=== PATIENT | female | born 1990 | race African-American/Black ===

== ENCOUNTER 2016-11-21 22:02 | Emergency (ER) | payer OTHER ==
[~2016-11-21] VITALS: Ht 170.2 cm; Wt 63.5 kg
[~2016-11-21 22:02] MED LIST: ALBU8.5H6 INH; HYDR-971 PO; TRAM50TA PO
[2016-11-21] MEDS ORDERED: diphenhydrAMINE 50 MG/ML VIAL IVP ONE (22:30)
[2016-11-21] MEDS ORDERED: PROCHLORPERAZINE 10 MG/2 ML VIAL. IV ONE (22:30)
[2016-11-21] MEDS ORDERED: DEXAMETHASONE SOD PHOS 20 MG/5 ML VIAL. IV ONE (22:30)
[2016-11-21] MEDS ORDERED: KETOROLAC 15 MG/ML VIAL. IV ONE (22:30)
--- NOTE | 2016-11-21 22:45 | PHYS DOC ---
Past Medical History Past Medical History: Asthma Past Surgical History: Other Additional Past [place] Histo[place] [facility] [place] Use: Occasionally Drug Use: None Adult General Chief Complaint Chief Complaint: HEADACHE HPI HPI Patient is a 26 year old female who presents with gradual onset left sided headache that is achy and has associated tingling and pain to left shoulder, neck and upper extremity. States left upper extremity feels slightly better if held in flexion at elbow. Symptoms are worse when she turns her head to the right or bends her neck to the right. She was working at a [employer] when symptoms began. Denies recent trauma. Denies vision changes, dizziness, chest pain, dyspnea, cough, f/c, n/v, abdominal pain, back pain, rash. Review of Systems Review of Systems Constitutional: Denies fever or chills [] Eyes: Denies change in visual acuity, redness, or eye pain [] HENT: Denies nasal congestion or sore throat [] Respiratory: Denies cough or shortness of breath [] Cardiovascular: No additional information not addressed in HPI [] GI: Denies abdominal pain, nausea, vomiting, bloody stools or diarrhea [] : Denies dysuria or hematuria [] Musculoskeletal: Denies back pain or joint pain [] Integument: Denies rash or skin lesions [] Neurologic: Denies focal weakness [] Endocrine: Denies polyuria or polydipsia [] Current Medications Current Medications Current Medications Medications (Trade) Dose Ordered Sig/Micheal Start Time Stop Time Status Last Admin Dose Admin Dexamethasone Sodium Phosphate (Decadron) 10 mg 1X ONCE 11/21/16 22:30 11/21/16 22:31 DC 11/21/16 22:41 10 MG Diphenhydramine HCl (Benadryl) 25 mg 1X ONCE 11/21/16 22:30 11/21/16 22:31 DC 11/21/16 22:42 25 MG Ketorolac Tromethamine (Toradol) 15 mg 1X ONCE 11/21/16 22:30 11/21/16 22:31 DC 11/21/16 22:42 15 MG Prochlorperazine Edisylate (Compazine) 10 mg 1X ONCE 11/21/16 22:30 11/21/16 22:31 DC 11/21/16 22:41 10 MG Allergies Allergies Allergies Coded Allergies Type Severity Reaction Last Updated Verified radium-223 dichloride Allergy Intermediate RASH 03/03/14 Yes Physical Exam Physical Exam Constitutional: Well developed, well nourished, no acute distress, non-toxic appearance. [] HENT: Normocephalic, atraumatic, bilateral external ears normal, oropharynx moist, nose normal. [] Eyes: PERRLA, EOMI. [] Neck: Normal range of motion, supple. [] Cardiovascular:Heart rate regular rhythm [] Lungs & Thorax: Bilateral breath sounds clear to auscultation [] Abdomen: Bowel sounds normal, soft, no tenderness. [] Skin: Warm, dry, no erythema, no rash. [] Back: No spinal tenderness, normal ROM; Has some left trapezius and thoracic paraspinal tenderness. [] Extremities: No tenderness, ROM intact, no edema, 2+ radial pulses bilaterally. [] Neurologic: Alert and oriented X 3, normal motor function, normal sensory function, no focal deficits noted. [] Psychologic: Affect normal, judgement normal, mood normal. [] Current Patient Data Vital Signs Vital Signs Date Time Temp Pulse Resp B/P (MAP) Pulse Ox O2 Delivery O2 Flow Rate FiO2 11/21/16 22:29 98.3 119 16 126/73 (90) 98 Room Air 98.3 Lab Values Laboratory Tests Test 11/21/16 21:18 POC Urine HCG, Qualitative Hcg negative (Negative) Course & Med Decision Making Course & Med Decision Making Her symptoms are resolved after medications and she feels back to baseline. She would like to go home at this time. Return precautions given. She understands and agrees with plan. Dragon Disclaimer Dragon Disclaimer This electronic medical record was generated, in whole or in part, using a voice recognition dictation system. Departure Departure Impression: Primary Impression: Headache Additional Impression: Tingling of left upper extremity Disposition: HOME, SELF-CARE Condition: STABLE Referrals: HUMPHREY DIAZ MD (PCP) Patient Instructions: Migraine Headache, [id number] Additional Instructions: Your symptoms are concerning for migraine or radiculopathy. Take Tylenol or ibuprofen as needed for pain. Follow-up with your primary care doctor within the week. Return for any concerns. Problem Qualifiers Primary Impression: Headache Headache type: unspecified Headache chronicity pattern: acute headache Intractability: not intractable Qualified Codes: R51 - Headache Brunilda ESTEVEZ MD November 21, 2016 22:45
[2016-11-21 23:40] VITALS: BP 92/55
== END 2016-11-21 23:59 | disposition home or self-care (01) ==
LOC: ER 22:02
DX: R51 Headache (principal); R20.2 Paresthesia of skin; J45.909 Unspecified asthma, uncomplicated; Z91.041 Radiographic dye allergy status
CPT/HCPCS: 81025; 96374; 96375; 99284; J0780; J1100; J1200; J1885

== ENCOUNTER 2016-12-05 11:15 | Emergency (ER) | payer OTHER ==
[~2016-12-05] VITALS: Ht 170.2 cm; Wt 61.2 kg
[2016-12-05 11:42] VITALS: BP 98/59
[2016-12-05] MEDS ORDERED: HYDR-971 PO (12:21)
[2016-12-05] MEDS ORDERED: SULF1TAB23 PO (12:21)
[2016-12-05] MEDS ORDERED: CEPH-264 PO (12:21)
--- NOTE | 2016-12-05 12:21 | PHYS DOC ---
Past Medical History Past Medical History: No Pertinent History Past Surgical History: No Surgical History Additional Past Surgical Histo: COMPLICATIONS WITH VAGINAL Additional Information: 3 CIGS/DAY Alcohol Use: None Drug Use: None Adult General Chief Complaint Chief Complaint: FOOT INJURY PAIN HPI HPI Patient is a 26 year old female presenting to the emergency department for evaluation of left leg foot and calf pain that has been going on since yesterday after a foreign went into her left Achilles area. I can see a small piece of retained foreign body in her left Achilles. There is surrounding redness and swelling. She says the pain radiates up and down the leg and it is painful to walk. Her Achilles is intact and she is able to walk it is just painful to do so. There is some tingling around the foreign body no weakness numbness or tingling distally. She says that she thinks her tetanus status is up-to-date. She says that she is not diabetic and she has no immune system issues. She is in no obvious distress with normal vital signs. Review of Systems Review of Systems Constitutional: Denies fever or chills [] GI: Denies abdominal pain, nausea, vomiting. Musculoskeletal: Denies back pain or joint pain [] Integument: + redness. Neurologic: Denies headache, focal weakness or sensory changes [] Allergies Allergies Allergies Coded Allergies Type Severity Reaction Last Updated Verified radium-223 dichloride Allergy Intermediate RASH 03/03/14 Yes Physical Exam Physical Exam Constitutional: Well developed, well nourished, no acute distress, non-toxic appearance. [] Cardiovascular:Heart rate regular rhythm, no murmur [] Lungs & Thorax: Bilateral breath sounds clear to auscultation [] Skin: Warm, dry, no erythema, no rash. [] Extremities: Left Achilles area with small black appearing foreign body. There is surrounding cellulitis approximately 2 x 2 centimeters with pain but no subcutaneous air in her calf and foot or wound area. She has pain to palpation in her calf and foot as well but there is no redness. There is mild swelling on the top of her left foot. She is neurovascularly intact distally. Neurologic: Alert and oriented X 3, normal motor function, normal sensory function, no focal deficits noted. [] Current Patient Data Vital Signs Vital Signs Date Time Temp Pulse Resp B/P (MAP) Pulse Ox O2 Delivery O2 Flow Rate FiO2 12/05/16 11:42 98.1 80 18 99 Room Air 98.1 EKG EKG [] Radiology/Procedures Radiology/Procedures [] Course & Med Decision Making Course & Med Decision Making I recommended that she let me numb up the area of foreign body and extract any retained foreign body but she refused. She said she rather see if it falls out on its own. I told her that I will start her on antibiotics and she needs to have her wound rechecked on Thursday and if it gets more red and swollen or painful she needs to come back to the emergency department. Patient aware and agreeable with plan for discharge and verbalized understanding of the need for short-term follow-up and strict ER return precautions discussed as above. Dragon Disclaimer Dragon Disclaimer This electronic medical record was generated, in whole or in part, using a voice recognition dictation system. Departure Departure Impression: Primary Impression: Cellulitis of leg without foot Disposition: HOME, SELF-CARE Condition: GOOD Referrals: HUMPHREY DIAZ MD (PCP) Patient Instructions: Cellulitis Additional Instructions: TAKE 400MG OF IBUPROFEN EVERY 6 HOURS AND THE NORCO FOR BREAKTHROUGH PAIN. FOLLOW WITH YOUR PCP THURSDAY AND COME BACK TO THE ED SOONER WITH ANY NEW OR WORSENING PAIN, FEVERS, REDNESS, SWELLING, OR OTHER GENERAL CONCERNS. THANK YOU ! Scripts Cephalexin (KEFLEX) 500 Mg Capsule 1 CAP PO BID, #14 CAP Prov: JULIANNE TRINIDAD DO 12/05/16 Hydrocodone/Apap 5-325 (NORCO 5-325 TABLET) 1 Each Tablet 1 TAB PO PRN Q6HRS Y for PAIN, #20 TAB 0 Refills Prov: JULIANNE TRINIDAD DO 12/05/16 Sulfamethoxazole/Trimethoprim (BACTRIM 400-80 MG TABLET) 1 Each Tablet 1 TAB PO BID, #14 TAB Prov: JULIANNE TRINIDAD DO 12/05/16 JULIANNE TRINIDAD DO Dec 05, 2016 12:21
== END 2016-12-05 12:38 | disposition home or self-care (01) ==
LOC: ER 11:15
DX: L03.116 Cellulitis of left lower limb (principal); F17.210 Nicotine dependence, cigarettes, uncomplicated; Z88.8 Allergy status to other drugs, medicaments and biological substances
CPT/HCPCS: 99283

== ENCOUNTER 2017-07-13 23:18 | Emergency (ER) | payer OTHER ==
[2017-07-14 00:32] LABS: URINE HCG POC HCG POSITIVE (Negative)
[2017-07-14 00:33] LABS: BILIRUBIN,URINE NEGATIVE (NEG); CLARITY,URINE CLOUDY; COLOR,URINE YELLOW; GLUCOSE,URINE NEGATIVE (NEG); NITRITE,URINE POSITIVE (NEG); PH,URINE 6.5; PROTEIN,URINE NEGATIVE (NEG-TRACE)
[2017-07-14 00:53] LABS: BACTERIA,URINE MANY /HPF (0-FEW); SQUAMOUS EPITHELIAL CELL,UR MOD /LPF
[2017-07-14 01:40] LABS: ADD MAN DIFF? NO
[2017-07-14 01:47] LABS: BASO % 1 % (0-3); EOS # 0.1 x10^3/uL (0.0-0.7); EOS % 2 % (0-3); HEMOGLOBIN 12.1 g/dL (12.0-15.5); LYMPH # 3.4 x10^3/uL (1.0-4.8); LYMPH % 49 % (24-48); MEAN CORPUSCULAR HEMOGLOBIN 28 pg (25-35); MEAN CORPUSCULAR HGB CONC 32 g/dL (31-37); MEAN CORPUSCULAR VOLUME 88 fL (79-100); MONO # 0.5 x10^3/uL (0.0-1.1); MONO % 7 % (0-9); NEUT # 2.9 x10^3uL (1.8-7.7); NEUT % 42 % (31-73); PLATELET COUNT 252 x10^3/uL (140-400); RED BLOOD COUNT 4.31 x10^6/uL (3.50-5.40); RED CELL DISTRIBUTION WIDTH 15.2 % (11.5-14.5)
[2017-07-14] MEDS: NITROFURANTOIN MONOHYD/M-CRYST 100 MG CAPSULE. PO (02:00)
[2017-07-14] MEDS ORDERED: MORPHINE SULFATE 2 MG/ML DISP.SYRIN. IV (02:15)
[2017-07-14] MEDS ORDERED: ONDANSETRON PF 4 MG/2 ML VIAL. IV (02:15)
== END 2017-07-14 02:04 | disposition home or self-care (01) ==
LOC: ER 23:18
DX: O23.41 Unspecified infection of urinary tract in pregnancy, first trimester (principal); Z3A.01 Less than 8 weeks gestation of pregnancy; Z88.8 Allergy status to other drugs, medicaments and biological substances; Z87.891 Personal history of nicotine dependence
CPT/HCPCS: 36415; 76801; 81001; 81025; 84702; 85025; 86900; 86901; 87086; 99285-25

== ENCOUNTER 2017-07-15 11:47 | Emergency (ER) | payer OTHER ==
[2017-07-15 12:55] LABS: BILIRUBIN,URINE SMALL (NEG); CLARITY,URINE CLOUDY; COLOR,URINE AMBER; GLUCOSE,URINE NEGATIVE (NEG); NITRITE,URINE NEGATIVE (NEG); PROTEIN,URINE 30 mg/dL (NEG-TRACE)
[2017-07-15 13:13] LABS: BACTERIA,URINE FEW /HPF (0-FEW); RBC,URINE >40 /HPF (0-2); SQUAMOUS EPITHELIAL CELL,UR MOD /LPF; WBC,URINE OCC /HPF (0-4)
== END 2017-07-15 14:52 | disposition home or self-care (01) ==
LOC: ER 11:47
DX: O20.0 Threatened abortion (principal); Z3A.22 22 weeks gestation of pregnancy; Z88.8 Allergy status to other drugs, medicaments and biological substances
CPT/HCPCS: 36415; 76801; 81001; 84702; 87086; 99285-25

== ENCOUNTER 2017-10-08 13:18 | Emergency (ER) | payer OTHER ==
[2017-10-08 13:51] LABS: URINE HCG POC HCG POSITIVE (Negative)
[2017-10-08 14:29] LABS: ADD MAN DIFF? NO
[2017-10-08] MEDS ORDERED: 0.9 % SODIUM CHLORIDE 10 ML DISP.SYRIN. IV (14:30)
[2017-10-08] MEDS: IV NORMAL SALINE 1000ML BAG 1,000 ML IV (14:30)
[2017-10-08 14:39] LABS: BILIRUBIN,URINE NEGATIVE (NEG); CLARITY,URINE CLOUDY; COLOR,URINE YELLOW; GLUCOSE,URINE NEGATIVE (NEG); NITRITE,URINE NEGATIVE (NEG); PH,URINE 7.5; PROTEIN,URINE NEGATIVE (NEG-TRACE)
[2017-10-08 14:41] LABS: ANION GAP 9 (6-14); BLOOD UREA NITROGEN 6 mg/dL (7-20); CALCIUM 8.7 mg/dL (8.5-10.1); CARBON DIOXIDE 26 mmol/L (21-32); CHLORIDE 103 mmol/L (98-107); CREATININE 0.5 mg/dL (0.6-1.0); GFR 176.5; GLUCOSE 71 mg/dL (70-99); POTASSIUM 3.6 mmol/L (3.5-5.1); SODIUM 138 mmol/L (136-145)
[2017-10-08] MEDS: ONDANSETRON PF 4 MG/2 ML VIAL. IV (14:45)
[2017-10-08 14:46] LABS: ALBUMIN 3.1 g/dL (3.4-5.0); ALK PHOS 41 U/L (46-116); ALT (SGPT) 17 U/L (14-59); AST (SGOT) 16 U/L (15-37); DIRECT BILIRUBIN < 0.1 mg/dL (0.0-0.2); TOTAL BILIRUBIN 0.4 mg/dL (0.2-1.0); TOTAL PROTEIN 6.9 g/dL (6.4-8.2)
[2017-10-08 14:52] LABS: BASO % 0 % (0-3); EOS # 0.1 x10^3/uL (0.0-0.7); EOS % 1 % (0-3); HEMATOCRIT 29.6 % (36.0-47.0); HEMOGLOBIN 9.9 g/dL (12.0-15.5); LYMPH # 1.8 x10^3/uL (1.0-4.8); LYMPH % 31 % (24-48); MEAN CORPUSCULAR HEMOGLOBIN 28 pg (25-35); MEAN CORPUSCULAR HGB CONC 33 g/dL (31-37); MEAN CORPUSCULAR VOLUME 85 fL (79-100); MONO # 0.5 x10^3/uL (0.0-1.1); MONO % 8 % (0-9); NEUT # 3.6 x10^3uL (1.8-7.7); NEUT % 60 % (31-73); PLATELET COUNT 231 x10^3/uL (140-400); RED CELL DISTRIBUTION WIDTH 16.2 % (11.5-14.5); WHITE BLOOD COUNT 5.9 x10^3/uL (4.0-11.0)
[2017-10-08 15:31] LABS: AMORPHOUS SEDIMENT,UR PRESENT /HPF; BACTERIA,URINE 0 /HPF (0-FEW); RBC,URINE 0 /HPF (0-2); SQUAMOUS EPITHELIAL CELL,UR OCC /LPF; WBC,URINE OCC /HPF (0-4)
== END 2017-10-08 16:35 | disposition home or self-care (01) ==
LOC: ER 13:18
DX: O21.9 Vomiting of pregnancy, unspecified (principal); O26.891 Other specified pregnancy related conditions, first trimester; R11.0 Nausea; Z91.041 Radiographic dye allergy status
CPT/HCPCS: 36415; 76801; 80048; 80076; 81001; 81025; 85025; 96361; 96374; 99285-25; J2405; J7030

== ENCOUNTER 2018-01-08 16:28 | Observation (INO) | payer OTHER ==
[2018-01-08 17:03] LABS: BILIRUBIN,URINE SMALL (NEG); CLARITY,URINE CLOUDY; COLOR,URINE AMBER; GLUCOSE,URINE NEGATIVE (NEG); NITRITE,URINE NEGATIVE (NEG); PH,URINE 6.5; PROTEIN,URINE 30 mg/dL (NEG-TRACE)
[2018-01-08 17:34] LABS: BACTERIA,URINE MODERATE /HPF (0-FEW); SQUAMOUS EPITHELIAL CELL,UR MANY /LPF
[2018-01-08 18:24] LABS: ADD MAN DIFF? NO
[2018-01-08] MEDS: IV DEXTROSE 5%-LACT RINGERS 1,000 ML IV ×2 (18:26→19:26)
[2018-01-08 18:27] LABS: BASO % 1 % (0-3); EOS # 0.2 x10^3/uL (0.0-0.7); EOS % 3 % (0-3); HEMATOCRIT 29.4 % (36.0-47.0); HEMOGLOBIN 9.7 g/dL (12.0-15.5); LYMPH # 1.7 x10^3/uL (1.0-4.8); LYMPH % 25 % (24-48); MEAN CORPUSCULAR HEMOGLOBIN 28 pg (25-35); MEAN CORPUSCULAR HGB CONC 33 g/dL (31-37); MEAN CORPUSCULAR VOLUME 83 fL (79-100); MONO # 0.6 x10^3/uL (0.0-1.1); MONO % 9 % (0-9); NEUT % 62 % (31-73); PLATELET COUNT 190 x10^3/uL (140-400); RED BLOOD COUNT 3.53 x10^6/uL (3.50-5.40); RED CELL DISTRIBUTION WIDTH 15.7 % (11.5-14.5); WHITE BLOOD COUNT 6.5 x10^3/uL (4.0-11.0)
[2018-01-08] MEDS: hydrOXYzine PAMOATE 25 MG CAPSULE PO (18:28)
[2018-01-08 18:40] LABS: ANION GAP 12 (6-14); BLOOD UREA NITROGEN 7 mg/dL (7-20); BUN/CREATININE RATIO 18 (6-20); CALCIUM 8.2 mg/dL (8.5-10.1); CARBON DIOXIDE 23 mmol/L (21-32); CHLORIDE 101 mmol/L (98-107); CREATININE 0.4 mg/dL (0.6-1.0); GFR 228.3; GLUCOSE 67 mg/dL (70-99); POTASSIUM 3.5 mmol/L (3.5-5.1); SODIUM 136 mmol/L (136-145)
[2018-01-08 18:47] LABS: ALBUMIN/GLOBULIN RATIO 0.8 (1.0-1.7); ALK PHOS 85 U/L (46-116); ALT (SGPT) 15 U/L (14-59); AST (SGOT) 19 U/L (15-37); TOTAL BILIRUBIN 0.3 mg/dL (0.2-1.0); TOTAL PROTEIN 6.6 g/dL (6.4-8.2)
== END 2018-01-08 20:47 | disposition home or self-care (01) ==
LOC: 3 SO LND 16:28
DX: O62.9 Abnormality of forces of labor, unspecified (principal); Z3A.25 25 weeks gestation of pregnancy; Z79.899 Other long term (current) drug therapy
CPT/HCPCS: 36415; 80053; 81001; 85025; 87086; 96360; 96361; G0378; G0379; Q0177

== ENCOUNTER 2018-01-23 06:53 | Observation (INO) | payer OTHER ==
[2018-01-23] MEDS ORDERED: IV RINGERS,LACTATED 1000ML 1,000 ML IV (07:17)
[2018-01-23 07:54] LABS: BILIRUBIN,URINE NEGATIVE (NEG); CLARITY,URINE CLOUDY; COLOR,URINE YELLOW; GLUCOSE,URINE NEGATIVE (NEG); NITRITE,URINE NEGATIVE (NEG); PROTEIN,URINE NEGATIVE (NEG-TRACE)
[2018-01-23 07:55] LABS: AMORPHOUS SEDIMENT,UR PRESENT /HPF; BACTERIA,URINE 0 /HPF (0-FEW); RBC,URINE 0 /HPF (0-2); SQUAMOUS EPITHELIAL CELL,UR MANY /LPF; WBC,URINE 0 /HPF (0-4)
[2018-01-23] MEDS: IV DEXTROSE 5%-LACT RINGERS 1,000 ML IV ×2 (08:54→09:54)
[2018-01-23] MEDS ORDERED: IV DEXTROSE 5%-LACT RINGERS 1,000 ML IV (10:00)
== END 2018-01-23 11:00 | disposition home or self-care (01) ==
LOC: 3 SO LND 06:53
DX: O26.892 Other specified pregnancy related conditions, second trimester (principal); R10.9 Unspecified abdominal pain; Z3A.27 27 weeks gestation of pregnancy
CPT/HCPCS: 59025; 81001; 87086; 96360; 96361; G0378; G0379

== ENCOUNTER 2018-02-12 19:15 | Observation (INO) | payer OTHER ==
[2017-10-08 16:15] VITALS: BP 108/78
[~2018-02-12 19:15] MED LIST changes: +CEPH-264 PO; +METO10TA81 PO; +NITR100C62 PO; +SULF1TAB23 PO
[2018-02-12 19:40] LABS: BILIRUBIN,URINE NEGATIVE (NEG); CLARITY,URINE CLEAR; COLOR,URINE YELLOW; NITRITE,URINE NEGATIVE (NEG); PROTEIN,URINE NEGATIVE (NEG-TRACE)
[2018-02-12 19:47] LABS: BARBITURATES NEG (NEG); BENZODIAZEPINES NEG (NEG); CANNABINOIDS NEG (NEG); COCAINE POS (NEG); METHADONE NEG (NEG); OPIATES NEG (NEG); PHENCYCLIDINE NEG (NEG)
[2018-02-12 19:53] LABS: BACTERIA,URINE 0 /HPF (0-FEW)
[2018-02-12 19:54] LABS: GRANULAR CASTS,URINE OCCASIONAL /HPF; SQUAMOUS EPITHELIAL CELL,UR MOD /LPF
[2018-02-12 19:57] LABS: AMPHETAMINE/METHAMPHETAMINE NEG (NEG)
[2018-02-12 20:02] LABS: AMNIO PT NEGATIVE
[2018-02-12] MEDS ORDERED: IV RINGERS,LACTATED 500ML 1,000 ML IV ONE ×2 (21:15→23:30)
== END 2018-02-12 23:35 | disposition home or self-care (01) ==
LOC: 3 SO LND 19:15
PROVIDERS: ADMIT Specialist; ATTEND Specialist
DX: O62.9 Abnormality of forces of labor, unspecified (principal); Z3A.30 30 weeks gestation of pregnancy; Z79.899 Other long term (current) drug therapy
CPT/HCPCS: 36415; 80307; 81001; 84112; 87086; 96360; G0378; G0379; J7120; G0479

== ENCOUNTER 2018-02-28 17:23 | Observation (INO) | payer OTHER ==
[2017-10-08 16:15] VITALS: BP 108/78
[2018-02-28 18:03] LABS: BILIRUBIN,URINE NEGATIVE (NEG); CLARITY,URINE CLEAR; COLOR,URINE YELLOW; NITRITE,URINE NEGATIVE (NEG); PROTEIN,URINE NEGATIVE (NEG-TRACE)
[2018-02-28 18:11] LABS: AMPHETAMINE/METHAMPHETAMINE NEG (NEG); BARBITURATES NEG (NEG); BENZODIAZEPINES NEG (NEG); CANNABINOIDS NEG (NEG); COCAINE POS (NEG); METHADONE NEG (NEG); OPIATES NEG (NEG); PHENCYCLIDINE NEG (NEG)
[2018-02-28 18:15] LABS: BACTERIA,URINE FEW /HPF (0-FEW); RBC,URINE 0 /HPF (0-2); SQUAMOUS EPITHELIAL CELL,UR FEW /LPF; WBC,URINE OCC /HPF (0-4)
[2018-02-28] MEDS ORDERED: 0.9 % SODIUM CHLORIDE 10 ML DISP.SYRIN. IV PRN (19:15)
[2018-02-28] MEDS ORDERED: ZOLPIDEM 5 MG TABLET. PO PRN (19:15)
[2018-02-28] MEDS ORDERED: IV NORMAL SALINE 1000ML BAG 1,000 ML IV PRN (19:15)
[2018-02-28] MEDS ORDERED: ACETAMINOPHEN 325 MG TABLET. PO PRN (19:15)
[2018-02-28 20:15] LABS: BASO # 0.1 x10^3/uL (0.0-0.2); BASO % 1 % (0-3); EOS # 0.2 x10^3/uL (0.0-0.7); EOS % 2 % (0-3); HEMATOCRIT 27.1 % (36.0-47.0); HEMOGLOBIN 8.9 g/dL (12.0-15.5); LYMPH % 26 % (24-48); MEAN CORPUSCULAR HEMOGLOBIN 26 pg (25-35); MEAN CORPUSCULAR HGB CONC 33 g/dL (31-37); MEAN CORPUSCULAR VOLUME 78 fL (79-100); MONO # 0.7 x10^3/uL (0.0-1.1); MONO % 9 % (0-9); NEUT # 4.8 x10^3uL (1.8-7.7); NEUT % 62 % (31-73); PLATELET COUNT 186 x10^3/uL (140-400); RED BLOOD COUNT 3.47 x10^6/uL (3.50-5.40); RED CELL DISTRIBUTION WIDTH 16.8 % (11.5-14.5); WHITE BLOOD COUNT 7.8 x10^3/uL (4.0-11.0)
[2018-02-28 20:32] LABS: CALCIUM 8.7 mg/dL (8.5-10.1); CREATININE 0.5 mg/dL (0.6-1.0); GFR 176.5; POTASSIUM 3.8 mmol/L (3.5-5.1)
[2018-02-28 20:37] LABS: ALBUMIN/GLOBULIN RATIO 0.8 (1.0-1.7); TOTAL BILIRUBIN 0.6 mg/dL (0.2-1.0); TOTAL PROTEIN 6.8 g/dL (6.4-8.2)
== END 2018-02-28 21:30 | disposition home or self-care (01) ==
LOC: 3 SO LND 17:23
PROVIDERS: ADMIT Specialist; ATTEND Specialist
DX: O62.9 Abnormality of forces of labor, unspecified (principal); O48.0 Post-term pregnancy; Z3A.41 41 weeks gestation of pregnancy; Z79.899 Other long term (current) drug therapy
CPT/HCPCS: 36415; 80053; 80307; 81001; 84443; 84550; 85025; G0378; G0379; J7030; 83036; G0479

== ENCOUNTER 2018-09-07 10:05 | Emergency (ER) | payer OTHER ==
[~2018-09-07] VITALS: Ht 170.2 cm; Wt 61.2 kg
[~2018-09-07 10:05] MED LIST changes: +HYDR-3164 PO; -HYDR-971 PO; +NAPR-514 PO
[2018-09-07] MEDS ORDERED: IV NORMAL SALINE 1000ML BAG 1,000 ML IV ONE (10:30)
--- NOTE | 2018-09-07 10:55 | EKG ---
[facility] [address] [place] [address] Test Date: 2018-09-07 Test Time: 10:43:35 Pat Name: DENISSE ELMORE Department: Room: Gender: F Executive Consultant: : 1990 Requested By: RUTHIE IVY Order Number: [id number] Reading MD: Oli Villareal Measurements Intervals [place] Rate: 65 P: 63 CO: 166 QRS: 66 QRSD: 78 T: 67 QT: 422 QTc: 444 Interpretive Statements SINUS RHYTHM Electronically Signed On 09-07-2018 11:10:44 GAME PRODUCER by Oli Villareal
[2018-09-07 11:01] LABS: BASO % 1 % (0-3); EOS # 0.1 x10^3/uL (0.0-0.7); EOS % 4 % (0-3); HEMATOCRIT 34.7 % (36.0-47.0); LYMPH # 1.6 x10^3/uL (1.0-4.8); LYMPH % 42 % (24-48); MEAN CORPUSCULAR HEMOGLOBIN 25 pg (25-35); MEAN CORPUSCULAR HGB CONC 32 g/dL (31-37); MEAN CORPUSCULAR VOLUME 79 fL (79-100); MONO # 0.4 x10^3/uL (0.0-1.1); MONO % 11 % (0-9); NEUT # 1.7 x10^3uL (1.8-7.7); NEUT % 43 % (31-73); PLATELET COUNT 277 x10^3/uL (140-400); RED BLOOD COUNT 4.38 x10^6/uL (3.50-5.40); RED CELL DISTRIBUTION WIDTH 17.8 % (11.5-14.5); WHITE BLOOD COUNT 3.9 x10^3/uL (4.0-11.0)
[2018-09-07 11:20] LABS: CREATININE 0.8 mg/dL (0.6-1.0); GFR 101.9
[2018-09-07 11:33] LABS: ALBUMIN 3.5 g/dL (3.4-5.0); MAGNESIUM 1.9 mg/dL (1.8-2.4); TOTAL BILIRUBIN 0.4 mg/dL (0.2-1.0); TOTAL PROTEIN 7.1 g/dL (6.4-8.2)
[2018-09-07 12:45] LABS: BILIRUBIN,URINE NEGATIVE (NEG); CLARITY,URINE CLOUDY; COLOR,URINE YELLOW; NITRITE,URINE NEGATIVE (NEG); PH,URINE 8.5; PROTEIN,URINE 30 mg/dL (NEG-TRACE)
[2018-09-07 12:51] LABS: BARBITURATES NEG (NEG); BENZODIAZEPINES NEG (NEG); CANNABINOIDS NEG (NEG); COCAINE POS (NEG); METHADONE NEG (NEG); OPIATES NEG (NEG); PHENCYCLIDINE NEG (NEG)
[2018-09-07 12:53] LABS: BACTERIA,URINE FEW /HPF (0-FEW); RBC,URINE OCC /HPF (0-2); SQUAMOUS EPITHELIAL CELL,UR MANY /LPF; WBC,URINE OCC /HPF (0-4)
[2018-09-07 12:58] LABS: AMORPHOUS SEDIMENT,UR PRESENT /HPF
--- NOTE | 2018-09-07 13:01 | RAD ---
Examination: CT HEAD WO CONTRAST History: DIZZINESS Comparison/Correlation: 03/25/2016 CT head mass effect without contrast Findings: Topograms unremarkable. Axial images of the head were obtained without contrast. Ventricles are normal size. No intracranial hemorrhage, midline shift, or mass effect. There is minimal calcification in the high right parafalcine region which is increase in size since the prior exam. No associated mass suspected. The cerebellopontine angle is unremarkable. Bony structures are grossly unremarkable. Impression: No acute process. PQRS Compliance Statement: One or more of the following individualized dose reduction techniques were utilized for this examination: 1. Automated exposure control 2. Adjustment of the mA and/or kV according to patient size 3. Use of iterative reconstruction technique Electronically signed by: Michael Luis MD (09/07/2018 12:57 PM) [id number]
[2018-09-07 13:24] LABS: AMPHETAMINE/METHAMPHETAMINE NEG (NEG)
[2018-09-07] MEDS ORDERED: MECL25TA3 PO (13:43)
--- NOTE | 2018-09-07 13:43 | PHYS DOC ---
Past Medical History Past Medical History: No Pertinent History Past Surgical History: No Surgical History Additional Past Surgical Histo: COMPLICATIONS WITH VAGINAL ; stillborn at 23 weeks Additional Information: 2-3 ciggerates per day Alcohol Use: None Drug Use: None Adult General Chief Complaint Chief Complaint: DIZZY/LIGHT HEADED HPI HPI Patient is a 28 year old female who presents with complaining of dizziness for 2 weeks as a constant problem without change after movement of her head or a standing up. Patient complaining of nausea and a couple episodes of vomiting 2 days ago and generalized weakness without chest pain, shortness of breath, focal neuro deficit, fever and chills, heavy vaginal bleeding, head injury. Patient complaining of episodes of blurred vision. Patient states she had history of of dizziness and had blood transfusion previously. Patient also states she was admitted at [facility] because of anemia and leukopenia with unremarkable finding including negative HIV and hepatitis test. She admitted to smoke cigarettes and denies using drugs and alcohol. Review of Systems Review of Systems Constitutional: Denies fever or chills [] Eyes: Denies change in visual acuity, redness, or eye pain [] HENT: Denies nasal congestion or sore throat [] Respiratory: Denies cough or shortness of breath [] Cardiovascular: No additional information not addressed in HPI [] GI: Denies abdominal pain, bloody stools or diarrhea, reports nausea and vomiting [] : Denies dysuria or hematuria [] Musculoskeletal: Denies back pain or joint pain [] Integument: Denies rash or skin lesions [] Neurologic: Denies headache, focal weakness or sensory changes reports dizziness [] Endocrine: Denies polyuria or polydipsia [] All other systems were reviewed and found to be within normal limits, except as documented in this note. Current Medications Current Medications Current Medications Medications (Trade) Dose Ordered Sig/Micheal Start Time Stop Time Status Last Admin Dose Admin Sodium Chloride 1,000 ml @ 1,000 mls/hr 1X ONCE 09/07/18 10:30 09/07/18 11:29 DC 09/07/18 10:51 1,000 MLS/HR Allergies Allergies Allergies Coded Allergies Type Severity Reaction Last Updated Verified radium-223 dichloride Allergy Intermediate RASH 03/03/14 Yes Physical Exam Physical Exam Constitutional: Well developed, well nourished, mild distress, non-toxic appearance. [] HENT: Normocephalic, atraumatic, bilateral external ears normal, oropharynx moist, no oral exudates, nose normal. [] Eyes: PERRLA, EOMI, conjunctiva normal, no discharge. [] Neck: Normal range of motion, no tenderness, supple, no stridor. [] Cardiovascular:Heart rate regular rhythm, no murmur [] Lungs & Thorax: Bilateral breath sounds clear to auscultation [] Abdomen: Bowel sounds normal, soft, no tenderness, no masses, no pulsatile masses. [] Skin: Warm, dry, no erythema, no rash. [] Back: No tenderness, no CVA tenderness. [] Extremities: No tenderness, no cyanosis, no clubbing, ROM intact, no edema. [] Neurologic: Alert and oriented X 3, normal motor function, normal sensory function, no focal deficits noted. [] Psychologic: Affect normal, judgement normal, mood normal. [] Current Patient Data Vital Signs Vital Signs Date Time Temp Pulse Resp B/P (MAP) Pulse Ox O2 Delivery O2 Flow Rate FiO2 09/07/18 14:09 61 18 100 09/07/18 10:15 97.9 121/71 (88) Room Air 97.9 Lab Values Laboratory Tests Test 09/07/18 10:30 09/07/18 12:15 09/07/18 12:24 White Blood Count 3.9 x10^3/uL (4.0-11.0) L Red Blood Count 4.38 x10^6/uL (3.50-5.40) Hemoglobin 11.0 g/dL (12.0-15.5) L Hematocrit 34.7 % (36.0-47.0) L Mean Corpuscular Volume 79 fL (79-100) Mean Corpuscular Hemoglobin 25 pg (25-35) Mean Corpuscular Hemoglobin Concent 32 g/dL (31-37) Red Cell Distribution Width 17.8 % (11.5-14.5) H Platelet Count 277 x10^3/uL (140-400) Neutrophils (%) (Auto) 43 % (31-73) Lymphocytes (%) (Auto) 42 % (24-48) Monocytes (%) (Auto) 11 % (0-9) H Eosinophils (%) (Auto) 4 % (0-3) H Basophils (%) (Auto) 1 % (0-3) Neutrophils # (Auto) 1.7 x10^3uL (1.8-7.7) L Lymphocytes # (Auto) 1.6 x10^3/uL (1.0-4.8) Monocytes # (Auto) 0.4 x10^3/uL (0.0-1.1) Eosinophils # (Auto) 0.1 x10^3/uL (0.0-0.7) Basophils # (Auto) 0.0 x10^3/uL (0.0-0.2) Sodium Level 142 mmol/L (136-145) Potassium Level 4.0 mmol/L (3.5-5.1) Chloride Level 101 mmol/L (98-107) Carbon Dioxide Level 33 mmol/L (21-32) H Anion Gap 8 (6-14) Blood Urea Nitrogen 9 mg/dL (7-20) Creatinine 0.8 mg/dL (0.6-1.0) Estimated GFR (Cockcroft-Gault) 101.9 BUN/Creatinine Ratio 11 (6-20) Glucose Level 87 mg/dL (70-99) Calcium Level 9.0 mg/dL (8.5-10.1) Magnesium Level 1.9 mg/dL (1.8-2.4) Total Bilirubin 0.4 mg/dL (0.2-1.0) Aspartate Amino Transferase (AST) 20 U/L (15-37) Alanine Aminotransferase (ALT) 25 U/L (14-59) Alkaline Phosphatase 64 U/L (46-116) Troponin I Quantitative < 0.017 ng/mL (0.000-0.055) Total Protein 7.1 g/dL (6.4-8.2) Albumin 3.5 g/dL (3.4-5.0) Albumin/Globulin Ratio 1.0 (1.0-1.7) Urine Collection Type Unknown Urine Color Yellow Urine Clarity Cloudy Urine pH 8.5 Urine Specific [place] 1.020 Urine Protein 30 mg/dL (NEG-TRACE) Urine Glucose (UA) Negative mg/dL (NEG) Urine Ketones (Stick) Negative mg/dL (NEG) Urine Blood Negative (NEG) Urine Nitrite Negative (NEG) Urine Bilirubin Negative (NEG) Urine Urobilinogen Dipstick 1.0 mg/dL (0.2 mg/dL) Urine Leukocyte Esterase Negative (NEG) Urine RBC Occ /HPF (0-2) Urine WBC Occ /HPF (0-4) Urine Squamous Epithelial Cells Many /LPF Urine Amorphous Sediment Present /HPF Urine Bacteria Few /HPF (0-FEW) Urine Mucus Slight /LPF Urine Opiates Screen Neg (NEG) Urine Methadone Screen Neg (NEG) Urine Barbiturates Neg (NEG) Urine Phencyclidine Screen Neg (NEG) Urine Amphetamine/Methamphetamine Neg (NEG) Urine Benzodiazepines Screen Neg (NEG) Urine Cocaine Screen Pos (NEG) Urine Cannabinoids Screen Neg (NEG) Urine Ethyl Alcohol Neg (NEG) POC Urine HCG, Qualitative Hcg negative (Negative) Laboratory Tests 09/07/18 10:30 Laboratory Tests 09/07/18 10:30 EKG EKG EKG interpreted by me. EKG at 1042 showed normal sinus rhythm at rate of 65, no acute ST and T-wave abnormalities. Radiology/Procedures Radiology/Procedures [facility] [address] [place] [address] IMAGING REPORT Signed PATIENT: DENISSE ELMORE ACCOUNT: [id number] : 1990 LOCATION: ER AGE: 28 SEX: F EXAM STATUS: REG ER ORD. PHYSICIAN: RUTHIE IVY MD REASON: dizziness WAITING ON HCG RESULTS 11:30 AM PROCEDURE: CT HEAD WO CONTRAST Examination: CT HEAD WO CONTRAST History: DIZZINESS Comparison/Correlation: 03/25/2016 CT head mass effect without contrast Findings: Topograms unremarkable. Axial images of the head were obtained without contrast. Ventricles are normal size. No intracranial hemorrhage, midline shift, or mass effect. There is minimal calcification in the high right parafalcine region which is increase in size since the prior exam. No associated mass suspected. The cerebellopontine angle is unremarkable. Bony structures are grossly unremarkable. Impression: No acute process. PQRS Compliance Statement: One or more of the following individualized dose reduction techniques were utilized for this examination: 1. Automated exposure control 2. Adjustment of the mA and/or kV according to patient size 3. Use of iterative reconstruction technique Electronically signed by: Michael Bergman MD (09/07/2018 12:57 PM) [id number] DICTATED and SIGNED BY: MICHAEL BERGMAN MD DATE: 09/07/18 1253 Course & Med Decision Making Course & Med Decision Making Pertinent Labs and Imaging studies reviewed. (See chart for details) Evaluation of patient in ER showed 28-year-old female patient with complaining of constant dizziness for 2 weeks and nausea and couple episodes of vomiting for the last couple days. Patient had unremarkable physical exam. Hemoglobin was 11.0 and white count was 2.9. Patient had previous anemia with blood transfusion and leukopenia with unremarkable workup. Patient ambulated in ER without problem. Patient had positive UDS for cocaine and instructed to stop taking cocaine and smoking cigarettes and increase fluid intake and follow up with her primary care physician. Dragon Disclaimer Dragon Disclaimer This electronic medical record was generated, in whole or in part, using a voice recognition dictation system. Departure Departure Impression: Primary Impression: Dizziness Additional Impressions: Cocaine abuse Anemia Leukopenia Tobacco abuse Tobacco abuse counseling Disposition: HOME, SELF-CARE (@1341) Condition: STABLE Referrals: NO PCP (PCP) Patient Instructions: Benign Positional Vertigo, Cocaine Abuse-Brief, Smoking Cessation, Tips For Success Additional Instructions: Drink plenty of liquids Follow-up with your primary care physician in 3-5 days Return to ER if not getting better Scripts Meclizine Hcl (MECLIZINE HCL) 25 Mg Tablet 25 MG PO PRN TID PRN for dizziness, #30 dizziness Prov: RUTHIE IVY MD 09/07/18 Problem Qualifiers RUTHIE IVY MD Sep 07, 2018 13:43
[2018-09-07 14:09] VITALS: BP 90/59
== END 2018-09-07 14:22 | disposition home or self-care (01) ==
LOC: ER 10:05
DX: R42 Dizziness and giddiness (principal); F14.10 Cocaine abuse, uncomplicated; D64.9 Anemia, unspecified; D72.819 Decreased white blood cell count, unspecified; Z71.6 Tobacco abuse counseling; Z72.0 Tobacco use; F17.210 Nicotine dependence, cigarettes, uncomplicated; Z91.041 Radiographic dye allergy status
CPT/HCPCS: 36415; 70450; 80053; 80307; 81001; 81025; 83735; 84484; 85025; 86850; 86900; 86901; 93005; 96360; 99284; J7030

== ENCOUNTER 2019-07-19 15:16 | Emergency (ER) | payer MEDICAID, OTHER ==
[~2019-07-19 15:16] MED LIST changes: +MECL-75 PO
== END 2019-07-19 16:31 | disposition left against medical advice (07) ==
LOC: ER 15:16
DX: O46.91 Antepartum hemorrhage, unspecified, first trimester (principal); Z3A.01 Less than 8 weeks gestation of pregnancy; Z53.21 Procedure and treatment not carried out due to patient leaving prior to being seen by health care provider

== ENCOUNTER 2019-09-06 02:51 | Emergency (ER) | payer SELFPAY ==
[~2019-09-06] VITALS: Ht 170.2 cm; Wt 63.6 kg
[2019-09-06 03:37] LABS: BILIRUBIN,URINE NEGATIVE (NEG); CLARITY,URINE CLOUDY; COLOR,URINE YELLOW; NITRITE,URINE NEGATIVE (NEG); PH,URINE 7.5; PROTEIN,URINE NEGATIVE (NEG-TRACE)
[2019-09-06 03:45] LABS: AMORPHOUS SEDIMENT,UR PRESENT /HPF; BACTERIA,URINE FEW /HPF (0-FEW); RBC,URINE 0 /HPF (0-2); SQUAMOUS EPITHELIAL CELL,UR FEW /LPF
[2019-09-06 03:46] LABS: BASO % 0 % (0-3); EOS % 1 % (0-3); HEMATOCRIT 26.8 % (36.0-47.0); HEMOGLOBIN 8.2 g/dL (12.0-15.5); LYMPH # 2.2 x10^3/uL (1.0-4.8); LYMPH % 26 % (24-48); MEAN CORPUSCULAR HEMOGLOBIN 22 pg (25-35); MEAN CORPUSCULAR HGB CONC 31 g/dL (31-37); MEAN CORPUSCULAR VOLUME 70 fL (79-100); MONO # 0.6 x10^3/uL (0.0-1.1); MONO % 7 % (0-9); NEUT # 5.6 x10^3/uL (1.8-7.7); NEUT % 66 % (31-73); PLATELET COUNT 229 x10^3/uL (140-400); RED BLOOD COUNT 3.83 x10^6/uL (3.50-5.40); RED CELL DISTRIBUTION WIDTH 22.2 % (11.5-14.5); WHITE BLOOD COUNT 8.4 x10^3/uL (4.0-11.0)
[2019-09-06] MEDS ORDERED: ONDANSETRON PF 4 MG/2 ML VIAL. IV ONE (04:00)
[2019-09-06] MEDS ORDERED: IV NORMAL SALINE 1000ML BAG 1,000 ML IV SCH (04:00)
[2019-09-06 04:13] LABS: CALCIUM 8.6 mg/dL (8.5-10.1); CREATININE 0.7 mg/dL (0.6-1.0); GFR 118.1; POTASSIUM 3.4 mmol/L (3.5-5.1)
[2019-09-06 04:19] LABS: ALBUMIN 3.6 g/dL (3.4-5.0); ALBUMIN/GLOBULIN RATIO 1.1 (1.0-1.7); TOTAL BILIRUBIN 0.1 mg/dL (0.2-1.0)
[2019-09-06 04:24] LABS: PLT ESTIMATE ADEQUATE (ADEQUATE)
[2019-09-06 04:25] LABS: ANISOCYTOSIS MOD; HYPOCHROMIA MOD; MICROCYTOSIS MARKED; POIKILOCYTOSIS SLIGHT; TARGET CELLS OCC
[2019-09-06 04:26] LABS: POLYCHROMASIA SLIGHT
[2019-09-06 04:28] LABS: OVALOCYTES OCC
--- NOTE | 2019-09-06 04:36 | PHYS DOC ---
Past Medical History Past Medical History: Anemia, Ovarian Cyst, UTI Additional Past Medical Histor: OVARY CYST,CLOSED HEAD INJURY Past Surgical History: No Surgical History Additional Past Surgical Histo: COMPLICATIONS WITH VAGINAL ; stillborn at 23 weeks Smoking Status: Current Every Day Smoker Alcohol Use: None Drug Use: None Social History Narrative: DENIES USE IN TRIAGE. Adult General Chief Complaint Chief Complaint: ABDOMINAL PAIN HPI HPI Patient is a 29 year old female who presents with complaint of lower abdominal pain episode of nausea and vomiting. Patient indicates that she may be . She denies any diarrhea. She rates pain to be a 7 out of 10. She describes pain as cramping in nature.[] Review of Systems Review of Systems Constitutional: Denies fever or chills [] Respiratory: Denies cough or shortness of breath [] Cardiovascular: No additional information not addressed in HPI [] GI: Complains of lower abdominal pain with nausea and vomiting. Denies diarrhea [] : Denies dysuria or hematuria [] Neurologic: Denies headache, focal weakness or sensory changes [] All other systems were reviewed and found to be within normal limits, except as documented in this note. Current Medications Current Medications Current Medications Medications (Trade) Dose Ordered Sig/Micheal Start Time Stop Time Status Last Admin Dose Admin Info (CONTRAST GIVEN -- Rx MONITORING) 1 each PRN DAILY PRN 09/06/19 04:45 09/08/19 04:44 Iohexol (Omnipaque 300 Mg/ml) 75 ml 1X ONCE 09/06/19 05:00 09/06/19 05:01 DC 09/06/19 05:05 75 ML Ondansetron HCl (Zofran) 4 mg 1X ONCE 09/06/19 04:00 09/06/19 04:01 DC 09/06/19 03:56 4 MG Sodium Chloride 1,000 ml @ 1,000 mls/hr Q1H 09/06/19 04:00 09/06/19 04:59 DC 09/06/19 03:56 1,000 MLS/HR Allergies Allergies Allergies Coded Allergies Type Severity Reaction Last Updated Verified radium-223 dichloride Allergy Intermediate RASH 03/03/14 Yes Physical Exam Physical Exam Constitutional: Well developed, well nourished, no acute distress, non-toxic appearance. [] HENT: Normocephalic, atraumatic, bilateral external ears normal, oropharynx moist, no oral exudates, nose normal. [] Eyes: PERRLA, EOMI, conjunctiva normal, no discharge. [] Neck: Normal range of motion, no tenderness, supple, no stridor. [] Cardiovascular: Regular rate and rhythm[] Lungs & Thorax: Bilateral breath sounds clear to auscultation [] Abdomen: Bowel sounds normal, soft, no tenderness. [] Skin: Warm, dry, no erythema, no rash. [] Extremities: No tenderness, no cyanosis, no clubbing, ROM intact, no edema. [] Neurologic: Alert and oriented X 3, no focal deficits noted. [] Current Patient Data Vital Signs Vital Signs Date Time Temp Pulse Resp B/P (MAP) Pulse Ox O2 Delivery O2 Flow Rate FiO2 09/06/19 03:00 97.8 83 20 119/80 (93) 98 Room Air 97.8 Lab Values Laboratory Tests Test 09/06/19 03:00 09/06/19 03:11 09/06/19 03:36 Urine Collection Type Unknown Urine Color Yellow Urine Clarity Cloudy Urine pH 7.5 Urine Specific [place] 1.025 Urine Protein Negative mg/dL (NEG-TRACE) Urine Glucose (UA) Negative mg/dL (NEG) Urine Ketones (Stick) Negative mg/dL (NEG) Urine Blood Negative (NEG) Urine Nitrite Negative (NEG) Urine Bilirubin Negative (NEG) Urine Urobilinogen Dipstick 1.0 mg/dL (0.2 mg/dL) Urine Leukocyte Esterase Negative (NEG) Urine RBC 0 /HPF (0-2) Urine WBC 1-4 /HPF (0-4) Urine Squamous Epithelial Cells Few /LPF Urine Amorphous Sediment Present /HPF Urine Bacteria Few /HPF (0-FEW) Urine Mucus Mod /LPF POC Urine HCG, Qualitative Hcg negative (Negative) White Blood Count 8.4 x10^3/uL (4.0-11.0) Red Blood Count 3.83 x10^6/uL (3.50-5.40) Hemoglobin 8.2 g/dL (12.0-15.5) L Hematocrit 26.8 % (36.0-47.0) L Mean Corpuscular Volume 70 fL (79-100) L Mean Corpuscular Hemoglobin 22 pg (25-35) L Mean Corpuscular Hemoglobin Concent 31 g/dL (31-37) Red Cell Distribution Width 22.2 % (11.5-14.5) H Platelet Count 229 x10^3/uL (140-400) Neutrophils (%) (Auto) 66 % (31-73) Lymphocytes (%) (Auto) 26 % (24-48) Monocytes (%) (Auto) 7 % (0-9) Eosinophils (%) (Auto) 1 % (0-3) Basophils (%) (Auto) 0 % (0-3) Neutrophils # (Auto) 5.6 x10^3/uL (1.8-7.7) Lymphocytes # (Auto) 2.2 x10^3/uL (1.0-4.8) Monocytes # (Auto) 0.6 x10^3/uL (0.0-1.1) Eosinophils # (Auto) 0.0 x10^3/uL (0.0-0.7) Basophils # (Auto) 0.0 x10^3/uL (0.0-0.2) Platelet Estimate Adequate (ADEQUATE) Polychromasia Slight Hypochromasia Mod Poikilocytosis Slight Anisocytosis Mod Microcytosis Marked Target Cells Occ Ovalocytes Occ Schistocytes Sodium Level 142 mmol/L (136-145) Potassium Level 3.4 mmol/L (3.5-5.1) L Chloride Level 106 mmol/L (98-107) Carbon Dioxide Level 28 mmol/L (21-32) Anion Gap 8 (6-14) Blood Urea Nitrogen 8 mg/dL (7-20) Creatinine 0.7 mg/dL (0.6-1.0) Estimated GFR (Cockcroft-Gault) 118.1 BUN/Creatinine Ratio 11 (6-20) Glucose Level 105 mg/dL (70-99) H Calcium Level 8.6 mg/dL (8.5-10.1) Total Bilirubin 0.1 mg/dL (0.2-1.0) L Aspartate Amino Transferase (AST) 20 U/L (15-37) Alanine Aminotransferase (ALT) 21 U/L (14-59) Alkaline Phosphatase 53 U/L (46-116) Total Protein 7.0 g/dL (6.4-8.2) Albumin 3.6 g/dL (3.4-5.0) Albumin/Globulin Ratio 1.1 (1.0-1.7) Lipase 79 U/L (73-393) Laboratory Tests 09/06/19 03:36 Laboratory Tests 09/06/19 03:36 EKG EKG [] Radiology/Procedures Radiology/Procedures [] Impressions: CT ABD PELV W/ IV CONTRST ONLY History: Abdominal pain. Technique: After the administration of intravenous contrast, CT imaging was performed of the abdomen and pelvis. Multiplanar images are reviewed. Exposure: One or more of the following individualized dose reduction techniques were utilized for this examination: 1. Automated exposure control 2. Adjustment of the mA and/or kV according to patient size 3. Use of iterative reconstruction technique. Comparison: February 06, 2014 Findings: Lower chest: No consolidation or pleural effusion. Abdomen and pelvis: Diffuse periportal edema, similar compared to prior. Pericholecystic fluid. No gallbladder wall thickening. The spleen, adrenal glands, and pancreas are unremarkable. No biliary ductal dilatation. Small left superior renal cyst measures 1.0 cm. No follow-up imaging is recommended per consensus recommendations based on imaging criteria. No hydronephrosis. Decompressed urinary bladder. Normal appendix. No evidence of bowel obstruction. Diastases recti. No pathologic lymphadenopathy. Heterogeneous appearance of the uterus. Involuting right ovarian follicle measures 1.1 cm. Small pelvic free fluid. Bones: No pathologic osseous lesions. Impression: 1. Heterogeneous appearance of the uterus with involuting right ovarian follicle. Ultrasound can further evaluate if clinically indicated. 2. Right pericholecystic fluid. No gallbladder wall thickening. 3. Nonspecific periportal edema, similar compared to prior. Electronically signed by: Dago Salinas DO (09/06/2019 5:35 AM) [id number] DICTATED and SIGNED BY: DAGO SALINAS DO DATE: 09/06/19 0535 Course & Med Decision Making Course & Med Decision Making Pertinent Labs and Imaging studies reviewed. (See chart for details) [] Dragon Disclaimer Dragon Disclaimer This electronic medical record was generated, in whole or in part, using a voice recognition dictation system. Departure Departure Impression: Primary Impression: Lower abdominal pain Disposition: 01 HOME, SELF-CARE Condition: STABLE Referrals: NO PCP (PCP) Patient Instructions: Abdominal Pain Scripts Acetaminophen With Codeine (TYLENOL WITH CODEINE #3 TABLET) 1 Each Tablet 1 TAB PO PRN Q6HRS PRN for PAIN, #12 TAB Prov: CONNIE BOYER Jr., DO 09/06/19 Ondansetron (ONDANSETRON ODT) 4 Mg Tab.rapdis 1 TAB PO PRN Q6-8HRS PRN for NAUSEA, #15 TAB Prov: CONNIE BOYER Jr. DO 09/06/19 CONNIE BOYER Jr. DO Sep 06, 2019 04:36
[2019-09-06] MEDS ORDERED: CONTRAST GIVEN. MC PRN (04:45)
[2019-09-06] MEDS ORDERED: IOHEXOL 300 MG/ML 100ML VIAL. IV ONE (05:00)
--- NOTE | 2019-09-06 05:38 | RAD ---
CT ABD PELV W/ IV CONTRST ONLY History: Abdominal pain. Technique: After the administration of intravenous contrast, CT imaging was performed of the abdomen and pelvis. Multiplanar images are reviewed. Exposure: One or more of the following individualized dose reduction techniques were utilized for this examination: 1. Automated exposure control 2. Adjustment of the mA and/or kV according to patient size 3. Use of iterative reconstruction technique. Comparison: February 06, 2014 Findings: Lower chest: No consolidation or pleural effusion. Abdomen and pelvis: Diffuse periportal edema, similar compared to prior. Pericholecystic fluid. No gallbladder wall thickening. The spleen, adrenal glands, and pancreas are unremarkable. No biliary ductal dilatation. Small left superior renal cyst measures 1.0 cm. No follow-up imaging is recommended per consensus recommendations based on imaging criteria. No hydronephrosis. Decompressed urinary bladder. Normal appendix. No evidence of bowel obstruction. Diastases recti. No pathologic lymphadenopathy. Heterogeneous appearance of the uterus. Involuting right ovarian follicle measures 1.1 cm. Small pelvic free fluid. Bones: No pathologic osseous lesions. Impression: 1. Heterogeneous appearance of the uterus with involuting right ovarian follicle. Ultrasound can further evaluate if clinically indicated. 2. Right pericholecystic fluid. No gallbladder wall thickening. 3. Nonspecific periportal edema, similar compared to prior. Electronically signed by: Eduardo Wallace DO (09/06/2019 5:35 AM) [id number]
[2019-09-06] MEDS ORDERED: ACET-704 PO (05:43)
[2019-09-06] MEDS ORDERED: ONDA4TAB12 PO (05:43)
[2019-09-06 06:00] VITALS: BP 113/63
== END 2019-09-06 06:06 | disposition home or self-care (01) ==
LOC: ER 02:51
DX: R10.30 Lower abdominal pain, unspecified (principal); R11.2 Nausea with vomiting, unspecified; F17.200 Nicotine dependence, unspecified, uncomplicated; Z98.890 Other specified postprocedural states; Z88.8 Allergy status to other drugs, medicaments and biological substances
CPT/HCPCS: 36415; 74177; 80053; 81001; 81025; 83690; 85025; 96361; 96374; 99285; J2405; J7030; Q9967

== ENCOUNTER 2019-11-07 09:29 | Emergency (ER) | payer SELFPAY ==
[~2019-11-07] VITALS: Ht 170.2 cm; Wt 70.0 kg
[~2019-11-07 09:29] MED LIST changes: +ACET-704 PO; +ONDA4TAB12 PO
[2019-11-07] MEDS ORDERED: cefTRIAXone IM 250 MG VIAL IM ONE (10:30)
[2019-11-07] MEDS ORDERED: AZITHROMYCIN 250 MG TABLET. PO ONE (10:30)
[2019-11-07 10:58] LABS: BILIRUBIN,URINE NEGATIVE (NEG); CLARITY,URINE CLEAR; COLOR,URINE YELLOW; NITRITE,URINE POSITIVE (NEG); PH,URINE 7.5 (<5.0-8.0); PROTEIN,URINE NEGATIVE (NEG-TRACE)
[2019-11-07 11:08] VITALS: BP 96/58
[2019-11-07 11:18] LABS: SQUAMOUS EPITHELIAL CELL,UR MOD /LPF
[2019-11-07 11:19] LABS: BACTERIA,URINE MANY /HPF (0-FEW); RBC,URINE 0 /HPF (0-2); TRICHOMONAS,URINE PRESENT
--- NOTE | 2019-11-07 12:48 | PHYS DOC ---
Past Medical History Past Medical History: Anemia, Asthma, Ovarian Cyst, UTI Additional Past Medical Histor: OVARY CYST,CLOSED HEAD INJURY Past Surgical History: No Surgical History Additional Past Surgical Histo: COMPLICATIONS WITH VAGINAL ; stillborn at 23 weeks Smoking Status: Current Every Day Smoker Alcohol Use: None Drug Use: None Adult General Chief Complaint Chief Complaint: NAUSEA/VOMITING/DIARRHA HPI HPI Patient is a 29 year old female who presents with multiple medical complaints. Patient reports generalized fatigue malaise and nausea the past 3 days vomiting this morning. Reports prepubic abdominal pain. No fever chills, flank pain, hematuria, urinary frequency urgency or dysuria. No vaginal bleeding. Last menstrual period was 3 weeks ago. No other acute symptoms or complaints. [] Review of Systems Review of Systems ROS as per HPI[] All other systems were reviewed and found to be within normal limits, except as documented in this note. Current Medications Current Medications Current Medications Medications (Trade) Dose Ordered Sig/Micheal Start Time Stop Time Status Last Admin Dose Admin Azithromycin (Zithromax) 1,000 mg 1X ONCE 11/07/19 10:30 11/07/19 10:31 Cancel Ceftriaxone Sodium (Rocephin Im) 250 mg 1X ONCE 11/07/19 10:30 11/07/19 10:31 Cancel Allergies Allergies Allergies Coded Allergies Type Severity Reaction Last Updated Verified radium-223 dichloride Allergy Intermediate RASH 03/03/14 Yes Physical Exam Physical Exam Constitutional: Well developed, well nourished, no acute distress, non-toxic appearance. [] HENT: Normocephalic, atraumatic, bilateral external ears normal, oropharynx moist, nose normal. [] Eyes: PERRLA, EOMI, conjunctiva normal. [] Neck: Normal range of motion, no tenderness, supple, no stridor. [] Cardiovascular:Heart rate regular rhythm, no murmur [] Lungs & Thorax: Bilateral breath sounds clear to auscultation [] Abdomen: Bowel sounds normal, soft, no tenderness. [] Skin: Warm, dry, no erythema, no rash. [] Back: No tenderness. [] Extremities: No tenderness, no edema. [] Neurologic: Alert and oriented X 3, normal motor function, normal sensory function, no focal deficits noted. [] Psychologic: Affect normal, judgement normal, mood normal. [] Current Patient Data Vital Signs Vital Signs Date Time Temp Pulse Resp B/P (MAP) Pulse Ox O2 Delivery O2 Flow Rate FiO2 11/07/19 11:08 73 20 96/58 (71) 100 Room Air 11/07/19 09:45 98.5 98.5 Lab Values Laboratory Tests Test 11/07/19 09:35 11/07/19 09:44 Urine Collection Type Unknown Urine Color Yellow Urine Clarity Clear Urine pH 7.5 (<5.0-8.0) Urine Specific [place] 1.020 (1.000-1.030) Urine Protein Negative mg/dL (NEG-TRACE) Urine Glucose (UA) Negative mg/dL (NEG) Urine Ketones (Stick) Negative mg/dL (NEG) Urine Blood Negative (NEG) Urine Nitrite Positive (NEG) Urine Bilirubin Negative (NEG) Urine Urobilinogen Dipstick 1.0 mg/dL (0.2 mg/dL) Urine Leukocyte Esterase Small (NEG) Urine RBC 0 /HPF (0-2) Urine WBC 5-10 /HPF (0-4) Urine Squamous Epithelial Cells Mod /LPF Urine Bacteria Many /HPF (0-FEW) Urine Trichomonas Present POC Urine HCG, Qualitative Hcg positive (Negative) EKG EKG [] Radiology/Procedures Radiology/Procedures [] Course & Med Decision Making Course & Med Decision Making Pertinent Labs and Imaging studies reviewed. (See chart for details) HCG positive] Dragon Disclaimer Dragon Disclaimer This electronic medical record was generated, in whole or in part, using a voice recognition dictation system. Departure Departure Impression: Primary Impression: Left against medical advice Additional Impression: Disposition: HOME, SELF-CARE Condition: STABLE Problem Qualifiers OLMAN PRICE DO November 07, 2019 12:48
== END 2019-11-07 11:29 | disposition left against medical advice (07) ==
LOC: ER 09:29
DX: O21.9 Vomiting of pregnancy, unspecified (principal); O99.331 Smoking (tobacco) complicating pregnancy, first trimester; R53.83 Other fatigue; R10.9 Unspecified abdominal pain; J45.909 Unspecified asthma, uncomplicated; F17.200 Nicotine dependence, unspecified, uncomplicated; Z98.890 Other specified postprocedural states; Z88.8 Allergy status to other drugs, medicaments and biological substances; Z3A.01 Less than 8 weeks gestation of pregnancy
CPT/HCPCS: 81001; 81025; 87086; 99284

== ENCOUNTER 2020-01-11 20:56 | Observation (INO) | payer OTHER ==
[2020-01-11] MEDS ORDERED: ONDANSETRON PF 4 MG/2 ML VIAL. IVP PRN (21:00)
[2020-01-11] MEDS ORDERED: IV RINGERS,LACTATED 1000ML 1,000 ML IV PRN (21:00)
[2020-01-11] MEDS ORDERED: ACETAMINOPHEN 325 MG TABLET. PO PRN (21:00)
[2020-01-11] MEDS ORDERED: MAG HYDROX/ALUMINUM HYD/SIMETH 30 ML ORAL.SUSP PO PRN (21:00)
[2020-01-11 21:10] LABS: BILIRUBIN,URINE NEGATIVE (NEG); CLARITY,URINE CLEAR; COLOR,URINE YELLOW; NITRITE,URINE NEGATIVE (NEG); PH,URINE 7.5 (<5.0-8.0); PROTEIN,URINE NEGATIVE (NEG-TRACE)
[2020-01-11 21:15] LABS: BACTERIA,URINE MANY /HPF (0-FEW); RBC,URINE 0 /HPF (0-2); SQUAMOUS EPITHELIAL CELL,UR FEW /LPF
[2020-01-11 21:16] LABS: WBC,URINE 20-40 /HPF (0-4)
[2020-01-11 21:17] LABS: AMPHETAMINE/METHAMPHETAMINE POS (NEG); BARBITURATES NEG (NEG); BENZODIAZEPINES NEG (NEG); CANNABINOIDS NEG (NEG); COCAINE NEG (NEG); METHADONE NEG (NEG); OPIATES NEG (NEG); PHENCYCLIDINE NEG (NEG)
[2020-01-11 21:18] LABS: TRICHOMONAS,URINE PRESENT
[2020-01-11] MEDS ORDERED: metroNIDAZOLE 500 MG TABLET PO ONE (22:15)
--- NOTE | 2020-01-11 22:21 | RAD ---
Study: US OB LIMITED Indication: Severe back pain. Comparison: None recently. Technique: Limited ultrasound assessment of the pelvis with a transabdominal probe. Findings: Single live intrauterine in breech presentation. heart rate of 175 bpm. Biparietal diameter: 3.8 cm-17 weeks 6 days Head circumference: 14.60 cm-17 weeks 6 days Abdominal circumference: 12.66 cm-18 weeks 2 days Femur length: 2.1 cm-18 weeks 4 days. Estimated weight of 235 g. Estimated gestational age by sonography of 18 weeks 1 day corresponding to a estimated delivery date of 06/12/2020. Amniotic fluid volume is appropriate. The lower margin of the placenta does not appear to extend over the internal cervical os. A assessment was not performed on this limited study. Impression: Single live intrauterine gestation with an estimated age of 18 weeks 1 day corresponding to a delivery date of 06/12/2020. No complicating features seen on this limited exam. Electronically signed by: KEESHA MUNSON MD (01/11/2020 10:18 PM) [id number]
== END 2020-01-11 22:33 | disposition home or self-care (01) ==
LOC: 3 SO LND 20:56
PROVIDERS: ADMIT Obstetrics & Gynecology; ATTEND Obstetrics & Gynecology
DX: O99.89 Other specified diseases and conditions complicating pregnancy, childbirth and the puerperium (principal); M54.9 Dorsalgia, unspecified; O26.892 Other specified pregnancy related conditions, second trimester; R10.30 Lower abdominal pain, unspecified; Z3A.18 18 weeks gestation of pregnancy; Z79.899 Other long term (current) drug therapy
CPT/HCPCS: 76815; 80307; 81001; 87086; G0378; G0379

== ENCOUNTER 2020-03-11 01:55 | Observation (INO) | payer OTHER ==
[2020-03-11] MEDS ORDERED: ACETAMINOPHEN 325 MG TABLET. PO PRN (02:15)
[2020-03-11] MEDS ORDERED: IV RINGERS,LACTATED 1000ML 1,000 ML IV PRN (02:15)
[2020-03-11 02:42] LABS: BILIRUBIN,URINE NEGATIVE (NEG); CLARITY,URINE CLEAR; COLOR,URINE YELLOW; NITRITE,URINE NEGATIVE (NEG); PH,URINE 7.5 (<5.0-8.0); PROTEIN,URINE NEGATIVE (NEG-TRACE)
[2020-03-11 02:47] LABS: BACTERIA,URINE MANY /HPF (0-FEW); RBC,URINE OCC /HPF (0-2)
[2020-03-11 02:48] LABS: SQUAMOUS EPITHELIAL CELL,UR MANY /LPF
[2020-03-11 02:49] LABS: BARBITURATES NEG (NEG); BENZODIAZEPINES NEG (NEG); CANNABINOIDS NEG (NEG); COCAINE NEG (NEG); METHADONE NEG (NEG); OPIATES NEG (NEG); PHENCYCLIDINE NEG (NEG)
[2020-03-11 02:50] LABS: AMPHETAMINE/METHAMPHETAMINE NEG (NEG)
== END 2020-03-11 03:30 | disposition home or self-care (01) ==
LOC: 3 SO LND 01:55
PROVIDERS: ADMIT Obstetrics & Gynecology; ATTEND Obstetrics & Gynecology
DX: O26.892 Other specified pregnancy related conditions, second trimester (principal); R10.9 Unspecified abdominal pain; Z3A.26 26 weeks gestation of pregnancy
CPT/HCPCS: 80307; 81001; 87086; G0378; G0379